=== PATIENT | male | born 1940 | race Caucasian/White ===

== ENCOUNTER 2017-04-06 12:12 | Inpatient (IN) | payer OTHER ==
[~2017-04-06] VITALS: Ht 175.3 cm; Wt 99.5 kg
[2017-04-06] MEDS ORDERED: SODIUM CHLORIDE 0.9% 1,000 ML IV SCH (12:20)
[2017-04-06] MEDS ORDERED: ASPIRIN 325 MG TABLET PO STA (12:20)
[2017-04-06] MEDS ORDERED: FENTANYL PF 100 MCG/2ML ONE (12:23)
[2017-04-06] MEDS ORDERED: MIDAZOLAM 1 MG/ML, 5ML ONE (12:23)
[2017-04-06] MEDS ORDERED: BIVALIRUDIN 250 MG ONE (12:24)
[2017-04-06] MEDS ORDERED: TICAGRELOR 90 MG TABLET ONE (12:24)
[2017-04-06] MEDS ORDERED: LIDOCAINE 2%, 20ML ONE (12:24)
[2017-04-06] MEDS ORDERED: HEPARIN 1,000 UNITS/ML, 10ML ONE (12:24)
[2017-04-06] MEDS ORDERED: VERAPAMIL 2.5 MG/ML, 2ML ONE (12:24)
[2017-04-06] MEDS ORDERED: ATORVASTATIN 80 MG TABLET PO ONE (12:30)
[2017-04-06] MEDS ORDERED: FENTANYL PF 100 MCG/2ML IVPush PRN (12:30)
[2017-04-06] MEDS ORDERED: NITROGLYCERIN 0.4 MG BOTTLE (25 TABS) SL PRN (12:30)
[2017-04-06] MEDS ORDERED: METOPROLOL 1 MG/ML, 5ML IVPush PRN (12:30)
[2017-04-06 12:31] LABS: HEMATOCRIT 40.9 % (39.2-51.8); HEMOGLOBIN 14.1 g/dL (13.7-18.0); WHITE BLOOD COUNT 12.2 x10^3/uL (3.4-10)
[2017-04-06] MEDS ORDERED: PLEASE ENTER ALLERGIES MC SCH ×2 (12:42)
[2017-04-06] MEDS ORDERED: SODIUM CHLORIDE 0.9% 1,000 ML IV ONE (14:00)
[2017-04-06] MEDS ORDERED: ACETAMINOPHEN 325 MG TABLET PO PRN (17:30)
[2017-04-06] MEDS ORDERED: DOCUSATE 100 MG CAPSULE PO PRN (17:30)
[2017-04-06] MEDS ORDERED: BISACODYL 10 MG SUPP PR PRN (17:30)
[2017-04-06 18:14] LABS: IS PT STATUS REG ER OR PRE ER? NO
[2017-04-06] MEDS: CARVEDILOL 3.125 MG TABLET PO SCH (18:20)
[2017-04-06] MEDS: NICOTINE 14MG/24 HR PATCH.TD24 TD SCH (18:25)
[2017-04-06] MEDS: TAMSULOSIN 0.4 MG CAP.ER.24H PO SCH (18:25)
[2017-04-06] MEDS: FAMOTIDINE 20 MG TABLET PO SCH (20:46)
[2017-04-06] MEDS: TICAGRELOR 90 MG TABLET PO SCH (20:46)
[2017-04-06] MEDS: ATORVASTATIN 40 MG TABLET PO SCH (20:46)
[2017-04-07 01:04] LABS: HEMATOCRIT 41.3 % (39.2-51.8); WHITE BLOOD COUNT 11.6 x10^3/uL (3.4-10)
[2017-04-07 01:15] LABS: ASPARTATE AMINO TRANSFERASE 296 U/L (15-37); BLOOD UREA NITROGEN 20 mg/dL (7-18)
[2017-04-07 01:35] LABS: IS PT STATUS REG ER OR PRE ER? NO
[2017-04-07] MEDS: HYDROmorphone 2 MG/ML, 1ML IVPush PRN ×4 (01:36→23:14)
[2017-04-07 04:01] VITALS: BP 116/68
[2017-04-07] MEDS: CARVEDILOL 3.125 MG TABLET PO SCH ×2 (06:32→17:38)
[2017-04-07] MEDS: ASPIRIN 81 MG TABLET EC PO SCH (06:32)
[2017-04-07] MEDS: TICAGRELOR 90 MG TABLET PO SCH ×2 (08:48→20:32)
[2017-04-07] MEDS: TAMSULOSIN 0.4 MG CAP.ER.24H PO SCH (08:48)
[2017-04-07] MEDS: FAMOTIDINE 20 MG TABLET PO SCH ×2 (08:48→20:32)
[2017-04-07] MEDS: FLUTICASONE NASAL SPRAY 16GM NAS SCH (12:23)
[2017-04-07 12:44] LABS: IS PT STATUS REG ER OR PRE ER? NO
[2017-04-07 13:40] VITALS: BP 104/68
[2017-04-07] MEDS: NICOTINE 14MG/24 HR PATCH.TD24 TD SCH (16:11)
[2017-04-07 20:10] VITALS: BP 104/62
[2017-04-07] MEDS: ATORVASTATIN 40 MG TABLET PO SCH (20:32)
[2017-04-08 03:47] VITALS: BP 96/63
[2017-04-08] MEDS: HYDROmorphone 2 MG/ML, 1ML IVPush PRN ×2 (04:15→10:43)
[2017-04-08 04:58] LABS: HEMATOCRIT 37.8 % (39.2-51.8); HEMOGLOBIN 12.7 g/dL (13.7-18.0); WHITE BLOOD COUNT 9.1 x10^3/uL (3.4-10)
[2017-04-08 05:16] LABS: ASPARTATE AMINO TRANSFERASE 90 U/L (15-37); BLOOD UREA NITROGEN 23 mg/dL (7-18)
[2017-04-08 05:18] LABS: IS PT STATUS REG ER OR PRE ER? NO
[2017-04-08] MEDS: CARVEDILOL 3.125 MG TABLET PO SCH (08:37)
[2017-04-08] MEDS: ASPIRIN 81 MG TABLET EC PO SCH (08:38)
[2017-04-08] MEDS: FLUTICASONE NASAL SPRAY 16GM NAS SCH (08:38)
[2017-04-08] MEDS: TICAGRELOR 90 MG TABLET PO SCH (08:39)
[2017-04-08 08:40] VITALS: BP 115/71
[2017-04-08] MEDS: TAMSULOSIN 0.4 MG CAP.ER.24H PO SCH (08:40)
[2017-04-08] MEDS: FAMOTIDINE 20 MG TABLET PO SCH (08:41)
[2017-04-08] MEDS ORDERED: SODIUM CHLORIDE 0.9% 1,000 ML IV SCH (09:30)
[2017-04-08 13:10] LABS: BLOOD UREA NITROGEN 23 mg/dL (7-18)
[2017-04-08] MEDS ORDERED: CARV3.1212 PO (13:35)
[2017-04-08] MEDS ORDERED: TAMS-11 PO (13:35)
[2017-04-08] MEDS ORDERED: ATOR40TA78 PO (13:35)
[2017-04-08] MEDS ORDERED: ASPI-621 PO (13:35)
[2017-04-08] MEDS ORDERED: TICA90TA PO (13:35)
[2017-04-08] MEDS ORDERED: FAMOTIDINE 20 MG TABLET PO SCH (21:00)
== END 2017-04-08 15:29 | disposition home or self-care (01) | DRG 246 ==
LOC: EDSEX 12:12 → EDBD 12:12 → ED 12:24 → CCU 12:25 → EDBD 12:25 → ED 13:21 → 5SO 04-07 13:30 → DCLOUNGE 04-08 15:00
PROVIDERS: ADMIT Hospitalist; ATTEND Hospitalist
PROC: 027034Z Dilation of Coronary Artery, One Artery with Drug-eluting Intraluminal Device, Percutaneous Approach (ICD-10-PCS; principal; 2017-04-06)
PROC: 4A023N7 Measurement of Cardiac Sampling and Pressure, Left Heart, Percutaneous Approach (ICD-10-PCS; 2017-04-06)
PROC: B2111ZZ Fluoroscopy of Multiple Coronary Arteries using Low Osmolar Contrast (ICD-10-PCS; 2017-04-06)
DX: T82.855A Stenosis of coronary artery stent, initial encounter (principal); I22.8 Subsequent ST elevation (STEMI) myocardial infarction of other sites; I21.02 ST elevation (STEMI) myocardial infarction involving left anterior descending coronary artery; J96.10 Chronic respiratory failure, unspecified whether with hypoxia or hypercapnia; Q60.0 Renal agenesis, unilateral; Z99.81 Dependence on supplemental oxygen; E88.09 Other disorders of plasma-protein metabolism, not elsewhere classified; E78.5 Hyperlipidemia, unspecified; H91.90 Unspecified hearing loss, unspecified ear; F17.200 Nicotine dependence, unspecified, uncomplicated; J44.9 Chronic obstructive pulmonary disease, unspecified; I25.5 Ischemic cardiomyopathy; Y83.8 Other surgical procedures as the cause of abnormal reaction of the patient, or of later complication, without mention of misadventure at the time of the procedure; N18.9 Chronic kidney disease, unspecified; Z79.82 Long term (current) use of aspirin; I25.2 Old myocardial infarction; Z85.51 Personal history of malignant neoplasm of bladder; Z87.891 Personal history of nicotine dependence; Z80.0 Family history of malignant neoplasm of digestive organs; Z88.2 Allergy status to sulfonamides; Z88.8 Allergy status to other drugs, medicaments and biological substances; Y92.89 Other specified places as the place of occurrence of the external cause; I25.119 Atherosclerotic heart disease of native coronary artery with unspecified angina pectoris
CPT/HCPCS: 36415; 71010; 80047; 80048; 80053; 83735; 84484; 85025; 85610; 85730; 87081; 93005; 93306; 93454; 99156; 99157; 99285; C1760; C1769; C1894; J0583; J1170; J1644; J2250; J3010; J3490; C1725; C1874; C1887; J7030; Q9967

== ENCOUNTER 2017-04-15 13:03 | Observation (INO) | payer OTHER ==
[~2017-04-15] VITALS: Ht 175.3 cm; Wt 100.4 kg
[~2017-04-15 13:03] MED LIST: ASPI-621 PO; ATOR40TA78 PO; CARV3.1212 PO; TAMS-11 PO; TICA90TA PO
[2017-04-15 15:45] VITALS: BP 113/66
[2017-04-15] MEDS ORDERED: ONDANSETRON ODT 4 MG PO PRN (16:30)
[2017-04-15] MEDS ORDERED: hydrALAzine 20 MG/ML, 1ML IVPush PRN (16:30)
[2017-04-15] MEDS ORDERED: DOCUSATE 100 MG CAPSULE PO PRN (16:30)
[2017-04-15] MEDS ORDERED: HYDROcodone/APAP 5/325 TABLET PO PRN (16:30)
[2017-04-15] MEDS ORDERED: ACETAMINOPHEN 325 MG TABLET PO PRN (16:30)
[2017-04-15] MEDS: NICOTINE 21 MG/24 HR PATCH.TD24 TD SCH (16:30)
[2017-04-15] MEDS ORDERED: ONDANSETRON 2MG/ML, 2ML IVPush PRN (16:30)
[2017-04-15] MEDS ORDERED: BISACODYL 10 MG SUPP PR PRN (16:30)
[2017-04-15] MEDS ORDERED: morphine SULFATE 10 MG/ML, 1ML IVPush PRN (16:30)
[2017-04-15] MEDS ORDERED: LABETALOL 5MG/ML, 20ML IVPush PRN (16:30)
[2017-04-15 17:59] VITALS: BP 110/65
[2017-04-15] MEDS: CARVEDILOL 3.125 MG TABLET PO SCH (17:59)
[2017-04-15] MEDS: SODIUM CHLORIDE 0.9% 1,000 ML IV SCH (17:59)
[2017-04-15 19:22] VITALS: BP 136/72
[2017-04-15] MEDS: ATORVASTATIN 40 MG TABLET PO SCH (21:43)
[2017-04-15] MEDS: ACETYLCYSTEINE 600 MG CAPSULE PO SCH (21:43)
[2017-04-15] MEDS: TICAGRELOR 90 MG TABLET PO SCH (21:43)
[2017-04-15] MEDS ORDERED: SODIUM CHLORIDE 0.9% 1,000 ML IV SCH (22:00)
[2017-04-16 01:51] VITALS: BP 118/72
[2017-04-16 04:54] LABS: HEMATOCRIT 36.8 % (39.2-51.8); HEMOGLOBIN 12.6 g/dL (13.7-18.0); WHITE BLOOD COUNT 10.1 x10^3/uL (3.4-10)
[2017-04-16 05:03] LABS: ASPARTATE AMINO TRANSFERASE 17 U/L (15-37); BLOOD UREA NITROGEN 31 mg/dL (7-18)
[2017-04-16] MEDS: ASPIRIN 81 MG TABLET EC PO SCH (06:02)
[2017-04-16] MEDS: CARVEDILOL 3.125 MG TABLET PO SCH ×2 (06:03→20:55)
[2017-04-16] MEDS: SODIUM CHLORIDE 0.9% 1,000 ML IV SCH ×4 (06:06→23:24)
[2017-04-16 06:20] VITALS: BP 106/56
[2017-04-16] MEDS: ACETYLCYSTEINE 600 MG CAPSULE PO SCH ×2 (08:59→20:55)
[2017-04-16 09:00] VITALS: BP 118/72
[2017-04-16] MEDS: TICAGRELOR 90 MG TABLET PO SCH ×2 (09:00→20:55)
[2017-04-16] MEDS: TAMSULOSIN 0.4 MG CAP.ER.24H PO SCH (09:04)
[2017-04-16] MEDS: SENNA/DOCUSATE TABLET PO SCH (09:32)
[2017-04-16 13:21] VITALS: BP 124/77
[2017-04-16] MEDS: FLUTICASONE NASAL SPRAY 16GM NAS SCH (13:37)
[2017-04-16] MEDS ORDERED: VERAPAMIL 2.5 MG/ML, 2ML ONE (14:41)
[2017-04-16] MEDS ORDERED: FENTANYL PF 100 MCG/2ML ONE (14:41)
[2017-04-16] MEDS ORDERED: MIDAZOLAM 1 MG/ML, 5ML ONE (14:41)
[2017-04-16] MEDS ORDERED: BIVALIRUDIN 250 MG ONE (14:42)
[2017-04-16] MEDS ORDERED: HEPARIN 1,000 UNITS/ML, 10ML ONE (14:42)
[2017-04-16] MEDS ORDERED: LIDOCAINE 2%, 20ML ONE (14:42)
[2017-04-16] MEDS ORDERED: HYDROmorphone 1 MG/ML, 1ML IV PRN (16:30)
[2017-04-16] MEDS: NICOTINE 21 MG/24 HR PATCH.TD24 TD SCH (17:15)
[2017-04-16] MEDS: LORATADINE 10 MG TABLET PO SCH (17:16)
[2017-04-16 18:55] VITALS: BP 104/64
[2017-04-16] MEDS: ATORVASTATIN 40 MG TABLET PO SCH (20:55)
[2017-04-16] MEDS ORDERED: MONTELUKAST 10 MG TABLET PO SCH (21:00)
[2017-04-17 01:50] VITALS: BP 127/65
[2017-04-17] MEDS: CARVEDILOL 3.125 MG TABLET PO SCH (05:03)
[2017-04-17] MEDS: ASPIRIN 81 MG TABLET EC PO SCH (05:03)
[2017-04-17 05:32] LABS: BLOOD UREA NITROGEN 28 mg/dL (7-18)
[2017-04-17] MEDS: SODIUM CHLORIDE 0.9% 1,000 ML IV SCH ×2 (07:24→08:27)
[2017-04-17 08:49] VITALS: BP 144/61
[2017-04-17] MEDS: FLUTICASONE NASAL SPRAY 16GM NAS SCH (08:50)
[2017-04-17] MEDS: ACETYLCYSTEINE 600 MG CAPSULE PO SCH (08:51)
[2017-04-17] MEDS: LORATADINE 10 MG TABLET PO SCH (08:51)
[2017-04-17] MEDS: TAMSULOSIN 0.4 MG CAP.ER.24H PO SCH (08:51)
[2017-04-17] MEDS: TICAGRELOR 90 MG TABLET PO SCH (08:51)
[2017-04-17] MEDS: SENNA/DOCUSATE TABLET PO SCH (08:52)
== END 2017-04-17 10:30 | disposition home or self-care (01) ==
LOC: INTOOBSV 15:55 → 5SO 15:55 → OBSVTOIN 16:27 → INTOOBSV 16:27
PROVIDERS: ADMIT Hospitalist; ATTEND Hospitalist
DX: I20.0 Unstable angina (principal); I12.9 Hypertensive chronic kidney disease with stage 1 through stage 4 chronic kidney disease, or unspecified chronic kidney disease; N18.3 Chronic kidney disease, stage 3 (moderate); E78.5 Hyperlipidemia, unspecified; F17.210 Nicotine dependence, cigarettes, uncomplicated; J44.9 Chronic obstructive pulmonary disease, unspecified; Z90.5 Acquired absence of kidney
CPT/HCPCS: 36415; 80048; 80053; 82040; 83735; 84100; 84439; 84443; 85025; 93005; 93458; 96374; 99156; C1769; C1894; G0378; J1170; J1644; J2250; J3010; J3490; J7030; Q9967; J0583

== ENCOUNTER 2019-04-20 08:00 | Outpatient (CLI) | payer OTHER ==
[~2019-04-20 08:00] MED LIST changes: -ASPI-621 PO; +ASPI81TA45 PO
[2019-04-20] MEDS ORDERED: albuterol nebulizer NEB (14:22)
[2019-04-20] MEDS ORDERED: OMEG1CAP23 PO (14:39)
[2019-04-20] MEDS ORDERED: cholecaciferol PO (14:39)
[2019-04-20] MEDS ORDERED: METH500T7 PO (14:39)
[2019-04-20] MEDS ORDERED: DOCU50LI24 PO (14:39)
[2019-04-20] MEDS ORDERED: CLOP75TA PO (14:39)
[2019-04-20] MEDS ORDERED: DICLOFENAC NA (14:39)
[2019-04-20] MEDS ORDERED: CITA20TA6 PO (14:39)
[2019-04-20] MEDS ORDERED: BUPR150T73 PO (14:39)
[2019-04-20] MEDS ORDERED: ISOS20TA3 PO (14:39)
[2019-04-20] MEDS ORDERED: CYAN100074 PO (14:39)
[2019-04-20] MEDS ORDERED: ASPI-496 PO (14:39)
[2019-04-20] MEDS ORDERED: MONT10TA9 PO (14:39)
[2019-04-20] MEDS ORDERED: albuterol INH (14:39)
[2019-04-20] MEDS ORDERED: ASCO500T7 PO (14:39)
[2019-04-20] MEDS ORDERED: FERR324T5 PO (14:39)
[2019-04-20] MEDS ORDERED: HYDROCHLOROTH12.5 MG PO (14:39)
[2019-04-20] MEDS ORDERED: MIRTAZAPINE PO (14:39)
[2019-04-20] MEDS ORDERED: LORA-247 PO (14:39)
[2019-04-20] MEDS ORDERED: fluticasone NAS (14:39)
[2019-04-20] MEDS ORDERED: MULT-658 PO (14:42)
[2019-04-20] MEDS ORDERED: SIMV40TA3 PO (14:42)
[2019-04-20] MEDS ORDERED: TRAM50TA2 PO (14:42)
== END 2019-04-20 23:59 | disposition home or self-care (01) ==
LOC: STAR 08:00
PROVIDERS: ATTEND Surgery
DX: Z01.818 Encounter for other preprocedural examination (principal); K43.2 Incisional hernia without obstruction or gangrene; J84.10 Pulmonary fibrosis, unspecified
CPT/HCPCS: 36415; 71046; 80053; 85025; 85610; 85730; 93005